=== PATIENT | female | born 1935 | race Caucasian/White ===

== ENCOUNTER 2021-03-07 21:07 | Emergency (ER) | payer MEDICARE, OTHER ==
[~2021-03-07] VITALS: Ht 165.1 cm; Wt 65.8 kg
[2021-03-07 21:14] VITALS: BP 138/79
[2021-03-07] MEDS ORDERED: ONDANSETRON HCL/PF 4 MG/2 ML VIAL ONE (22:00)
[2021-03-07] MEDS: ONDANSETRON HCL/PF 4 MG/2 ML VIAL IV ONE (22:05)
== END 2021-03-07 22:31 | disposition home or self-care (01) ==
LOC: ER 21:14
DX: F12.90 Cannabis use, unspecified, uncomplicated (principal); R11.2 Nausea with vomiting, unspecified; I10 Essential (primary) hypertension; E11.9 Type 2 diabetes mellitus without complications; Z60.2 Problems related to living alone
CPT/HCPCS: 96374; 99283; J2405